=== PATIENT | male | born 1955 | race Caucasian/White ===

== ENCOUNTER 2016-11-25 23:13 | Emergency (ER) | payer SELFPAY | END 2016-11-25 23:45 | disposition left against medical advice (07) | LOC: ER 23:13 | DX: Z53.21 Procedure and treatment not carried out due to patient leaving prior to being seen by health care provider (principal) ==

== ENCOUNTER 2017-09-11 20:40 | Emergency (ER) | payer MEDICAID ==
[2017-09-11] MEDS ORDERED: MORPHINE SULFATE 10 MG/ML INJ IV ONE (22:18)
[2017-09-11] MEDS ORDERED: ONDANSETRON HCL INJ/PF 4 MG/2 ML SDV IV ONE (22:19)
--- NOTE | 2017-09-11 22:29 | ER Document Report ---
ED General - General Chief Complaint: Rib Pain Stated Complaint: FALL/RIB PAIN Time Seen by Provider: 09/11/17 22:06 - [facility] Notes: Patient is a 62-year-old male with a history of T-cell lymphoma diagnosed 6 weeks ago who presents to the ED complaining of left abdominal pain that is worsened over the last day. Patient states that he began chemo and his last dose of chemo was a week and a half ago. Patient states that they were told at that time that he had an enlarged spleen. Patient states that he has noticed worsening swelling and pain to his left abdomen in the area of his spleen over the last day which is what brought him to the emergency department today. Patient states that he has otherwise been tolerating chemo well and has been eating and drinking without difficulties. He is urinating normally and having normal bowel movements. Patient's oncologist is through [facility]. Patient states that he did become dizzy and fell into a cabinet, "softly" on his right side. Patient states that he did not injure the left side of his body at all. Pt has had occ dark stool, hard, not soft or loose. No other concerns or complaints at this time. Denies any drug allergies. Denies any headache, fever , head injury, neck pain, changes in vision/speech/mentation/hearing, URI, sore throat, chest pain, palpitations, syncope, cough, shortness of breath, wheeze, dyspnea, vomiting/diarrhea, urinary retention, dysuria, hematuria, back pain, loss of control of bowel or bladder, numbness/tingling, saddle anesthesia, muscle paralysis/weakness, or rash. - Related Data Allergies/Adverse Reactions: No Known Allergies Allergy (Verified 12/21/12 13:10) Past Medical History - Social History Smoking Status: Current Every Day Smoker Chew tobacco use (# tins/day): No Frequency of alcohol use: None Drug Abuse: None Family History: None, Reviewed & Not Pertinent Patient has suicidal ideation: No Patient has homicidal ideation: No Renal/ Medical History: Reports: Hx Kidney Stones, Hx Peritoneal Dialysis Musculoskeltal Medical History: Reports Hx Arthritis Past Surgical History: Reports: Hx Orthopedic Surgery - left thumb tendon - Immunizations Immunizations up to date: Yes Hx Diphtheria, Pertussis, Tetanus Vaccination: No Review of Systems - Review of Systems -: Yes All other systems reviewed and negative Physical Exam - Vital signs Vitals: Temp Pulse Resp BP Pulse Ox 97.8 F 94 18 113/75 100 09/11/17 21:26 09/11/17 21:26 09/11/17 21:26 09/11/17 21:26 09/11/17 21:26 - Notes Notes: PHYSICAL EXAMINATION: GENERAL: Well-appearing, well-nourished and in no acute distress. A&Ox4. Answers questions appropriately. HEAD: Atraumatic, normocephalic. EYES: Pupils equal round and reactive to light, extraocular movements intact, sclera anicteric, conjunctiva are normal. ENT: EAC clear b/l. TM's intact b/l without erythema, fluid, or perforation. Nares patent and without discharge. oropharynx clear without exudates. No tonsilar hypertrophy or erythema. Moist mucous membranes. No sinus tenderness. NECK: Normal range of motion, supple without lymphadenopathy LUNGS: Breath sounds clear to auscultation bilaterally and equal. No wheezes rales or rhonchi. HEART: Regular rate and rhythm without murmurs, rubs, gallops. ABDOMEN: Soft, nondistended abdomen. No guarding, no rebound. No masses appreciated. Normal bowel sounds present. No CVA tenderness bilaterally. + swelling to the left abdomen and tenderness to palp. + umbilical hernia that is currently reducible. Rectal: no melena. no kar blood. non-tender. no impaction or obvious mass. Musculoskeletal: FROM to passive/active. Strength 5+/5. Extremities: No cyanosis, clubbing, or edema b/l. Peripheral pulses 2+. Capillary refill less than 3 seconds. NEUROLOGICAL: Normal speech, normal gait. Normal sensory, motor exams PSYCH: Normal mood, normal affect. SKIN: Warm, Dry, normal turgor, no rashes or lesions noted. Course - Re-evaluation Re-evalutation: 09/11/17 22:[address] Bowie and Dr. Martinez: We will obtain labs and a CT with IV contrast to further investigate. Pain control will be provided as well. 09/12/17 00:[address] Martinez who states that we will not have to place on any anticoagulant at this time and he can be discharged with pain control with follow-up oncology thursday. I did order a guiac. 09/12/17 01:16 Guiac negative. We will transfuse 2 units of blood and plan for discharge thereafter. Pt now reports that he had to have a transfusion 3 weeks ago at [facility] as well. No new concerns or complaints at this time. 09/12/17 03:20 Pt has no new concerns or complaints. Vitals acceptable. 09/12/17 06:47 Patient is an afebrile, well-hydrated, 62-year-old male who presents to the ED with T-cell lymphoma with left abdominal pain, most likely secondary to complications of his lymphoma. Vitals are acceptable. PE is otherwise unremarkable. Patient is tolerating p.o. at this time. Blood was provided without any complications. Low suspicion for any sepsis, meningitis, severe dehydration, respiratory compromise, or other systemic emergent condition at this time. Patient is aware that condition can change from initial presentation and he needs to monitor symptoms closely and seek medical attention with any acute changes. I will send him home with a prescription for his Percocet that he is taking at home currently. Patient states that he is unable to get another prescription refilled until Thursday so I will give him a short script to get him to Thursday. Patient to recheck with his oncologist on Thursday as well. Return to the ED with any worsening/concerning symptoms otherwise as reviewed discharge. Patient and spouse are in agreement. - Vital Signs Vital signs: Temp Pulse Resp BP Pulse Ox 97.6 F 57 L 14 121/82 100 09/12/17 05:17 09/12/17 05:17 09/12/17 05:31 09/12/17 05:31 09/12/17 05:31 - Laboratory Result Diagrams: 09/11/17 22:45 09/11/17 22:45 Laboratory results interpreted by me: 09/11/17 09/11/17 09/11/17 22:45 22:45 22:45 WBC 1.0 L* RBC 2.50 L Hgb 7.4 L Hct 21.7 L RDW 17.8 H Plt Count 51 L Seg Neutrophils % 33.2 L Lymphocytes % 57.6 H Absolute Neutrophils 0.3 L APTT 37.8 H Chloride 110 H Urine Urobilinogen Urine Ascorbic Acid Crossmatch 09/12/17 09/12/17 00:10 01:20 WBC RBC Hgb Hct RDW Plt Count Seg Neutrophils % Lymphocytes % Absolute Neutrophils APTT Chloride Urine Urobilinogen 2.0 H Urine Ascorbic Acid 20 H Crossmatch See Detail Discharge - Discharge Clinical Impression: Low hemoglobin Abdominal pain Qualifiers: Abdominal location: unspecified location Qualified Code(s): R10.9 - Unspecified abdominal pain Lymphoma Qualifiers: Lymphoma type: unspecified type Lymphoma site: unspecified region Qualified Code(s): C85.90 - Non-Hodgkin lymphoma, unspecified, unspecified site Condition: Stable Disposition: HOME, SELF-CARE Additional Instructions: You received 2 units of blood due to having a low hemoglobin (anemia and level of 7.4). Maintain adequate fluid and food intake Flathead diet (B.R.[employer].T.) Bananas, rice, apples, toast, etc Zofran as needed tylenol if needed Monitor for any worsening symptoms Make sure you are staying hydrated enough to urinate and have normal BM's Recheck with your Oncologist on Thursday Return to the ED with any worsening symptoms and/or development of fever, headache, chest pain, palpitations, syncope, shortness of breath, trouble breathing, abdominal pain, n/v/d, blood in stool/urine, weakness, or other worsening symptoms that are concerning to you. Prescriptions: Ondansetron [Zofran Odt 4 mg Tablet] 1 - 2 tab PO Q4H PRN #15 tab.rapdis PRN Reason: For Nausea/Vomiting Oxycodone HCl/Acetaminophen [Oxycodone-Acetaminophen 10-325] 1 each PO TID PRN # 6 tablet PRN Reason: Referrals: ONCOLOGY [Provider Group] - 09/14/17
[2017-09-11 22:59] LABS: ABSOLUTE LYMPHOCYTES (AUTO) 0.6 10^3/uL (0.5-4.7); ABSOLUTE MONOCYTES (AUTO) 0.1 10^3/uL (0.1-1.4); ABSOLUTE NEUT (AUTO) 0.3 10^3/uL (1.7-8.2); BASOPHILS % (AUTO) 1.3 % (0-2); EOSINOPHILS % (AUTO) 1.3 % (0-6); HEMATOCRIT 21.7 % (37.9-51.0); LYMPHOCYTES % (AUTO) 57.6 % (13-45); MEAN CORPUSCULAR HEMOGLOBIN 29.5 pg (27.0-33.4); MEAN CORPUSCULAR HGB CONC 34.1 g/dL (32.0-36.0); MEAN CORPUSCULAR VOLUME 87 fl (80-97); MONOCYTES % (AUTO) 6.6 % (3-13); RED CELL DISTRIBUTION WIDTH 17.8 % (11.5-14.0); SEGMENTED NEUTROPHILS % (AUTO) 33.2 % (42-78); TOTAL CELLS COUNTED % (AUTO) 100 %
[2017-09-11 23:03] LABS: INTERNATIONAL RATION (INR) 1.13; PARTIAL THROMBOPLASTIN TIME 37.8 SEC (23.5-35.8); PROTHROMBIN TIME 15.1 SEC (11.4-15.4)
[2017-09-11 23:18] LABS: ALANINE AMINOTRANSFERASE 25 U/L (21-72); ALBUMIN 3.6 g/dL (3.5-5.0); ALKALINE PHOSPHATASE 53 U/L (38-126); ANION GAP 9 (5-19); ASPARTATE AMINO TRANSFERASE 18 U/L (17-59); BILIRUBIN,DIRECT 0.2 mg/dL (0.0-0.4); BILIRUBIN,TOTAL 0.2 mg/dL (0.2-1.3); BLOOD UREA NITROGEN 13 mg/dL (7-20); CALCIUM 9.3 mg/dL (8.4-10.2); CARBON DIOXIDE 26 mmol/L (22-30); CHLORIDE 110 mmol/L (98-107); GLUCOSE 95 mg/dL (75-110); POTASSIUM 3.7 mmol/L (3.6-5.0); SODIUM 144.6 mmol/L (137-145); TOTAL PROTEIN 6.6 g/dL (6.3-8.2)
[2017-09-11 23:28] LABS: PLATELET COUNT 51 10^3/uL (150-450)
[2017-09-11 23:30] LABS: ANISOCYTOSIS 1+; POIKILOCYTOSIS SLIGHT
[2017-09-11 23:31] LABS: OVALOCYTES SLIGHT; PLATELET COMMENT DECREASED; TEAR DROP CELLS SLIGHT
[2017-09-11 23:33] LABS: HEMOGLOBIN 7.4 g/dL (13.5-17.0)
--- NOTE | 2017-09-11 23:58 | RADIOLOGY REPORT (SQ) ---
EXAM DESCRIPTION: CHEST SINGLE VIEW COMPLETED DATE/TIME: 09/11/2017 11:33 pm REASON FOR STUDY: verify port COMPARISON: None. EXAM PARAMETERS: NUMBER OF VIEWS: One view. TECHNIQUE: Single frontal radiographic view of the chest acquired. RADIATION DOSE: NA LIMITATIONS: None. FINDINGS: LUNGS AND PLEURA: No opacities, masses or pneumothorax. No pleural effusion. MEDIASTINUM AND HILAR STRUCTURES: No masses. Contour normal. HEART AND VASCULAR STRUCTURES: Heart normal in size. Normal vasculature. BONES: No acute findings. HARDWARE: Right chest port tip overlies the SVC above the RA junction. OTHER: No other significant finding. IMPRESSION: NO ACUTE RADIOGRAPHIC FINDING IN THE CHEST. Right chest port tip overlies the SVC above the RA junction. TECHNICAL DOCUMENTATION: JOB ID: [id number] [id number] 2010 Results [employer]- All Rights Reserved Reading location - IP/workstation name: [email or web address]
--- NOTE | 2017-09-12 00:19 | RADIOLOGY REPORT (SQ) ---
EXAM DESCRIPTION: CT ABDOMEN AND PELVIS WITH CONTRAST CLINICAL HISTORY: Lymphoma and splenomegaly. Left abdominal pain. COMPARISON: None Available. TECHNIQUE: CT of the abdomen and pelvis performed following IV administration of 75 mL of Isovue-370. DLP: 937.69 mGycm FINDINGS: Lung Bases: The visualized lung bases are clear. Bones: No destructive bone lesions identified. Degenerative change of the spine. Abdomen: Liver: The liver has normal size and density. No intrahepatic solid mass or biliary dilatation. Subcentimeter hypodensities in the posterior right hepatic lobe are too small for accurate CT characterization and may represent cysts or hemangiomas. Gallbladder: No calcified gallstones. Spleen, Pancreas, and Adrenal Glands: 1.5 cm splenic cyst. Wedge-shaped hypodensity involving the inferior aspect of the spleen. No abnormalities of the pancreas or adrenal glands. Kidneys: The kidneys have normal size and contour without evidence of solid mass or hydronephrosis. Vasculature: Aortoiliac atherosclerosis. IVC is unremarkable. The portal vein is patent. The proximal visceral and renal arteries are patent. Stomach: The stomach and duodenum have normal course. Other: No free intraperitoneal air. In the left periaortic space there is an ovoid hypodense structure measuring 3.4 x 2.5 cm. There are other scattered nonenlarged shotty lymph nodes. Pelvis: Bladder: Urinary bladder is unremarkable. Bowel: Dilated loops of large or small bowel. Scattered diverticula of the colon. Appendix: No evidence of appendicitis however there is no secondary signs of acute appendicitis. Pelvis: Prostate is not enlarged. IMPRESSION: 1. Wedge-shaped hypodensity involving the inferior aspect of the spleen. This could represent sequela of splenic infarction. Acuity is indeterminate without comparison. 2. There is a 3.4 cm ovoid structure in the left periaortic space. This may represent a liquefactive lymph node however other etiologies are possible. This lesion may be amenable to percutaneous biopsy. This exam was performed according to our departmental dose-optimization program, which includes automated exposure control, adjustment of the mA and/or kV according to patient size and/or use of iterative reconstruction technique.
[2017-09-12] MEDS ORDERED: NORMAL SALINE 250 ML IV PRN (01:10)
[2017-09-12] MEDS ORDERED: MORPHINE SULFATE 10 MG/ML INJ IV ONE ×3 (01:26→06:27)
[2017-09-12 01:31] LABS: AMORPHOUS SEDIMENT,URINE TRACE /HPF; APPEARANCE,URINE SLIGHTLY-CLOUDY; BILIRUBIN,URINE NEGATIVE (NEGATIVE); COLOR,URINE YELLOW; GLUCOSE, URINE NEGATIVE (NEGATIVE); KETONES,URINE NEGATIVE (NEGATIVE); LEUKOCYTE ESTERASE,URINE NEGATIVE (NEGATIVE); NITRITE,URINE NEGATIVE (NEGATIVE); PROTEIN,URINE NEGATIVE (NEGATIVE); URINE SPECIFIC GRAVITY 1.029
[2017-09-12] MEDS ORDERED: MORPHINE SULFATE IR 15 MG TABLET PO ONE (06:50)
[2017-09-12 07:02] VITALS: BP 123/85
== END 2017-09-12 06:54 | disposition home or self-care (01) ==
LOC: ER 20:40
DX: D64.9 Anemia, unspecified (principal); R10.9 Unspecified abdominal pain; R07.81 Pleurodynia; C85.80 Other specified types of non-Hodgkin lymphoma, unspecified site; F17.200 Nicotine dependence, unspecified, uncomplicated; Z87.442 Personal history of urinary calculi
CPT/HCPCS: 96376; 99284; 96374; 96375; 86900; 86901; 36415; 36430; 86850; 85025; 85610; 85730; 82272; 80053; 81001; 86920; 71045; 74177; P9016; J2270 ×2; J2405